=== PATIENT | female | born 1950 | race Caucasian/White ===

== ENCOUNTER → 2024-02-02 | Outpatient (CLI) | payer MEDICARE ==
--- NOTE | 2024-02-03 07:28 | BD ---
EXAMINATION TYPE: Axial Bone Density DATE OF EXAM: 02/02/2024 CLINICAL HISTORY: 73 years old Female. ICD-10 CODE: M81.0 age related osteoporosi Height: 4 ft 11 in Weight: 145 FRAX RISK QUESTIONS: Alcohol (3 or more units per day): no Family History (Parent hip fracture): no Glucocorticoids (More than 3mos): no (Ex: prednisone, prednisolone, methylprednisolone, dexamethasone, and hydrocortisone). History of Fracture in Adulthood: yes Secondary Osteoporosis: 1. Type 1 Diabetes: no 2. Hyperthyroidism: no 3. Menopause before 45: no 4. Malnutrition: no 5. Chronic liver disease: no Rheumatoid Arthritis: no Current Tobacco Use: no RISK FACTORS HISTORY OF: History of Wrist Fracture: rt When: 48 years ago Surgery to Spine/Hip(right/left)/Wrist (right/left): none MEDICATIONS: Thyroid Medications: yes Which medication: levothyroxine How Lon Osteoporosis Medications: none EXAM MEASUREMENTS: Bone mineral densitometry was performed using the [employer] System. Bone mineral density as measured about the Lumbar spine is: ----- L1-L4(G/cm2): 0.974 T Score Values are as follows: ----- L1: -1.8 ----- L2: -1.7 ----- L3: -2.2 ----- L4: -1.4 ----- L1-L4: -1.7 Z Score Values are as follows: ----- L1: 0.0 ----- L2: 0.0 ----- L3: -0.4 ----- L4: 0.3 ----- L1-L4: 0.0 baseline Bone mineral density about the R hip (g/cm2): 0.698 Bone mineral density about the L hip (g/cm2): 0.719 T Score values are as follows: -----R Neck: -2.4 -----L Neck: -2.3 -----R Total: -1.9 -----L Total: -1.4 Z Score values are as follows: -----R Neck: -0.5 -----L Neck: -0.4 -----R Total: -0.2 -----L Total: 0.4 baseline FRAX%s: The graph provided illustrates a 23.6 % chance for a major osteoporotic fx and a 7.0 % chance for the hips probability for fx in 10 years time. IMPRESSION: Osteopenia (T Score between -2.5 and -1). There is slightly increased risk of fracture and the patient may be considered for treatment. Re-Screen 2-5 years. NOTE: T-SCORE=SD OF THE YOUNG ADULT MEAN.
--- NOTE | 2024-02-03 12:37 | MM ---
Reason for Exam: Screening (asymptomatic). Last mammogram was performed 8 year(s) and 5 month(s) ago. Patient History: Menarche at age 11. First Full-Term at age 23. Left ovary removed at age 51. Right ovary removed at age 51. Hysterectomy at age 51. Postmenopausal. Maternal grandmother had breast cancer, age 90. Paternal aunt had breast cancer, age 70. Risk Values: Kat 5 year model risk: 2.0%. NCI Lifetime model risk: 4.2%. Prior Study Comparison: 06/18/2010 Bilateral Screening Mammogram, [facility]. 07/01/2010 Left Diagnostic Mammogram, [facility]. 10/06/2011 Bilateral Screening Mammogram, [facility]. 09/16/2015 Bilateral Screening Mammogram, [facility]. Tissue Density: There are scattered areas of fibroglandular density. Findings: Analyzed By CAD. Right breast: There is no suspicious group of microcalcifications or new suspicious mass. Left breast: There is no suspicious group of microcalcifications or new suspicious mass. Overall Assessment: Negative, BI-RAD 1 Management: Screening Mammogram of both breasts in [address] [facility] will attempt to contact patient to return for supplemental views and ultrasound if indicated. Patient should continue monthly self-breast exams. A clinical breast exam by your physician is recommended on an annual basis. This exam should not preclude additional follow-up of suspicious palpable abnormalities. Note on Kat scores and lifetime risk: 1. A Kat score greater than 3% is considered moderate risk. If this is the case, consider specialist referral to assess eligibility for a risk reducing agent. 2. If overall lifetime risk for the development of breast cancer is 20% or higher, the patient may qualify for future screening with alternating mammogram and breast MRI. Electronically signed and approved by: Pedro Salazar DO
== END | disposition home or self-care (01) ==
LOC: RADMAMWWP 14:01
PROVIDERS: ATTEND Internal Medicine Geriatric Medicine
DX: Z12.31 Encounter for screening mammogram for malignant neoplasm of breast (principal); M85.89 Other specified disorders of bone density and structure, multiple sites; M81.0 Age-related osteoporosis without current pathological fracture; Z78.0 Asymptomatic menopausal state; Z80.3 Family history of malignant neoplasm of breast
CPT/HCPCS: 77063; 77067; 77080